=== PATIENT | male | born 1970 | race Caucasian/White ===

== ENCOUNTER 2018-08-18 20:17 | Inpatient (IN) | payer MEDICAID, OTHER ==
[~2018-08-18] VITALS: Ht 165.1 cm; Wt 79.0 kg
--- NOTE | 2018-08-18 22:39 | ERD ---
ER Documentation Chief Complaint Chief Complaint bib ra from [place] for cp, given 162 asa, 1 spray nitro, no cp upon assessm HPI 47-year-old male who presents with family member. The patient had a dental procedure with tooth extraction earlier today. While at dinner he started to describe pressure-like crushing chest pain radiating to the left upper extremity. The patient denies any ripping or tearing sensation, no pain to the middle of his back. He was given aspirin and nitroglycerin via EMS with complete resolution of symptoms. The family member also notes that the patient was having some weakness of the left upper extremity for approximately 5-10 minutes. He did describe a mild headache but no sudden onset headache or syncopal episode. Patient is asymptomatic currently. Family notes that he has been under an unbelievable amount of stress recently. ROS All systems reviewed and are negative except as per history of present illness. PMhx/Soc Medical and Surgical Hx: pt denies Medical Hx, pt denies Surgical Hx Hx Cardiac Disorders: Yes (htn, hyperlipidemia ) Hx Alcohol Use: No Hx Substance Use: No Hx Tobacco Use: No Smoking Status: Never smoker FmHx Family History: No diabetes Physical Exam Vitals Vital Signs Date Temp Pulse Resp B/P (MAP) Pulse Ox O2 O2 Flow FiO2 Time Delivery Rate 08/18/18 98.1 62 19 126/65 100 Room Air 20:21 (85) 08/18/18 Nasal 20:21 Cannula 08/18/18 98.1 62 19 126/65 100 20:18 (85) Physical Exam General: Well developed, well nourished, no acute distress Head: Normocephalic, atraumatic. Eyes: Pupils equally reactive, EOM intact ENT: Moist mucous membranes Neck: Supple, no lymphadenopathy Respiratory: Lungs clear bilaterally, no distress Cardiovascular: RRR, no murmurs, rubs, or gallops Abdominal: Soft, non-tender, non-distended, no peritoneal signs : Deferred MSK: No edema, no unilateral swelling, 5/5 strength Neurologic: Alert and oriented, moving all extremities, normal speech, no focal weakness, no cerebellar signs, normal rapid alternating movements, no pronator drift. NIH SS of 0 Skin: No rash Psych: Normal mood Result Diagram: 08/18/18202608/18/182026 Results 24 hrs Laboratory Tests Test 08/18/18 20:27 White Blood Count 9.4 10^3/ul Red Blood Count 3.93 10^6/ul Hemoglobin 12.3 g/dl Hematocrit 34.1 % Mean Corpuscular Volume 86.8 fl Mean Corpuscular Hemoglobin 31.3 pg Mean Corpuscular Hemoglobin Concent 36.1 g/dl Red Cell Distribution Width 11.4 % Platelet Count 341 10^3/UL Mean Platelet Volume 9.1 fl Immature Granulocytes % 0.600 % Neutrophils % 59.6 % Lymphocytes % 25.3 % Monocytes % 7.0 % Eosinophils % 6.8 % Basophils % 0.7 % Nucleated Red Blood Cells % 0.0 /100WBC Immature Granulocytes # 0.060 10^3/ul Neutrophils # 5.6 10^3/ul Lymphocytes # 2.4 10^3/ul Monocytes # 0.7 10^3/ul Eosinophils # 0.6 10^3/ul Basophils # 0.1 10^3/ul Nucleated Red Blood Cells # 0.0 10^3/ul Prothrombin Time 13.7 Sec Prothrombin Time Ratio 1.1 INR International Normalized Ratio 1.04 Activated Partial Thromboplast Time 26.6 Sec Sodium Level 127 mmol/L Potassium Level 3.6 mmol/L Chloride Level 92 mmol/L Carbon Dioxide Level 25 mmol/L Anion Gap 10 Blood Urea Nitrogen 13 mg/dl Creatinine 1.06 mg/dl Est Glomerular Filtrat Rate mL/min > 60 mL/min Glucose Level 147 mg/dl Hemoglobin A1c 5.2 % Calcium Level 9.2 mg/dl Troponin I < 0.012 ng/ml Triglycerides Level 132 mg/dl Cholesterol Level 168 mg/dl LDL Cholesterol, Calculated 99 mg/dl HDL Cholesterol 43 mg/dl Cholesterol/HDL Ratio 3.9 RATIO Procedures/MDM EKG, MONITORS, & DIAGNOSTIC IMAGING: EKG: I reviewed and interpreted a 12-lead EKG. Rhythm: Normal sinus rhythm ST Changes: No contiguous ST segment elevations T waves: No contiguous T wave inversions Impression: No evidence of acute cardiac ischemia Repeat EKG: EKG: I reviewed and interpreted a 12-lead EKG. Rhythm: Normal sinus rhythm ST Changes: No contiguous ST segment elevations T waves: No contiguous T wave inversions Impression: No evidence of acute cardiac ischemia Chest x-ray: I reviewed and interpreted a 1 view of the chest Mediastinum: No enlargement Cardiac silhouette: No cardiomegaly Airspace: Clear lung avila bilaterally without evidence of pneumothorax Bones: No evidence of fracture CT brain: IMPRESSION: 1. No acute intracranial hemorrhage nor mass effect. 2. Few scattered punctate cortical/subcortical calcifications noted in the right frontal and left occipital lobe, possibly reflecting sequela of prior ischemia, trauma or infection such as neurocysticercosis or toxoplasmosis. Clinical correlation recommended with consideration for further evaluation with MRI brain without and with gadolinium. 3. Otherwise, age - appropriate unenhanced CT appearance of the brain. MRI brain has improved sensitivity for acute infarct or subtle lesion. Findings discussed with and acknowledged by Dr. Barrera at 09:00 p.m. 08/18/2018. RPTAT: HSAN PROCEDURES: None LAB INTERPRETATION: Negative troponin MEDICAL DECISION MAKING: The patient's history, physical exam and clinical presentation is concerning for possible cardiogenic etiology and acute coronary syndrome. The presentation is quite odd. The patient additionally had some weakness of the left upper extremity. The patient did not have any ripping or tearing pain and no pain to the middle of his back to suggest dissection. While there is a neurologic finding that is now resolved I doubt this is consistent with dissection. The patient mediastinum is normal as well. She has no significant risk factors for dissection. I do not believe a CT of the chest is warranted at this time of her continue to monitor. Consider possible TIA versus anxiety response. Patient's ABCD 2 score is 3 placing him in a low risk category. Based on the patient's clinical exam and history and risk factors, I have a much lower clinical concern for pulmonary embolism, acute aortic dissection, pneumothorax, pneumonia, cardiac tamponade HEART Score: 0-3 MACE Rate: 1.7% Shared Decision Making: We had a conversation regarding risk stratification, MACE rate, and the risks, benefits, alternatives of disposition planning options. Disposition planning: Admission ER COURSE: * The patient symptoms are completely resolved. The patient is not a TPA or interventional candidate given complete resolution of symptoms, asymptomatic and NIH SS of 0 the risks greatly outweigh the benefits. * Patient received aspirin and nitro prior to arrival. Patient is asymptomatic and chest pain-free. CONSULTATION: None DISPOSITION PLAN: Telemetry admission for management of chest pain to rule out acute coronary syndrome, serial enzymes, risk stratification and consideration of provocative testing CONSULTATION: Accepting care team and consultations: I discussed the current laboratory data, diagnostic imaging and emergency care provided. Admitting team: Dr. Martinez Admitting team indication: Insurance directed Departure Diagnosis: Primary Impression: Chest pain Chest pain type: unspecified Qualified Codes: R07.9 - Chest pain, unspecified Additional Impressions: Left arm weakness Hyponatremia Anxiety Condition: Stable JI BARRERA MD Aug 18, 2018 22:39
[2018-08-18] MEDS ORDERED: ONDANSETRON 4 MG INJ IV PRN (23:00)
[2018-08-18] MEDS ORDERED: ACETAMINOPHEN 325 MG TAB PO PRN (23:00)
--- NOTE | 2018-08-18 23:32 | HP ---
Date/Time of Note Date/Time of Note DATE: 08/18/18 TIME: 23:32 Assessment/Plan VTE Prophylaxis Pharmacological prophylaxis: heparin Lines/Catheters IV Catheter Type (from [facility]rs[facility]): Saline Lock Assessment/Plan Assessment/Plan 1. Chest pain: Rule out ACS -first troponin negative and EKG without ST T wave abnormalities -Aspirin, ACEI, as needed nitro -Serial troponin and 2D echo -Consider cardiology consult 2. Hyponatremia: will hold hydrochlorothiazide 3. Hypertension: Continue home meds. Adjust as needed 4. History of asthma/allergy: No sign of shortness of breath. Monitor closely Result Diagram: 08/18/18202608/18/182026 Results 24hrs Laboratory Tests Test 08/18/18 20:27 White Blood Count 9.4 Red Blood Count 3.93 L Hemoglobin 12.3 L Hematocrit 34.1 L Mean Corpuscular Volume 86.8 Mean Corpuscular Hemoglobin 31.3 Mean Corpuscular Hemoglobin Concent 36.1 Red Cell Distribution Width 11.4 L Platelet Count 341 Mean Platelet Volume 9.1 Immature Granulocytes % 0.600 H Neutrophils % 59.6 Lymphocytes % 25.3 Monocytes % 7.0 Eosinophils % 6.8 Basophils % 0.7 Nucleated Red Blood Cells % 0.0 Immature Granulocytes # 0.060 H Neutrophils # 5.6 Lymphocytes # 2.4 Monocytes # 0.7 Eosinophils # 0.6 H Basophils # 0.1 Nucleated Red Blood Cells # 0.0 Prothrombin Time 13.7 Prothrombin Time Ratio 1.1 INR International Normalized Ratio 1.04 Activated Partial Thromboplast Time 26.6 Sodium Level 127 L Potassium Level 3.6 Chloride Level 92 L Carbon Dioxide Level 25 Anion Gap 10 Blood Urea Nitrogen 13 Creatinine 1.06 Est Glomerular Filtrat Rate mL/min > 60 Glucose Level 147 Hemoglobin A1c 5.2 Calcium Level 9.2 Troponin I < 0.012 Triglycerides Level 132 Cholesterol Level 168 LDL Cholesterol, Calculated 99 HDL Cholesterol 43 Cholesterol/HDL Ratio 3.9 HPI/ROS Admit Date/Time Admit Date/Time Hx of Present Illness This is a 47-year-old male with a history of hypertension and asthma/allergy who presents ER complaining of chest pain. Pain is been going on for 1 day. Located in the mid chest and also left-sided with radiation to the left arm. No associated shortness of breath, nausea/vomiting or diaphoresis. Currently he is chest pain-free and looks comfortable. Patient's son was at the bedside who helped with the history taking. When presented to ER, vitals were stable. First troponin negative and EKG without ST elevation or depression. PMH/Family/Social Past Medical History Medical History: other (See HPI) Medications Current Medications Ondansetron HCl (Zofran Inj) 4 mg ER BRIDGE PRN IV NAUSEA/VOMITING; Start 08/18/18 at 23:00; Stop 08/19/18 at 22:59 Acetaminophen (Tylenol Tab) 650 mg ER BRIDGE PRN PO .MILD PAIN 1-3 OR TEMP; Start 08/18/18 at 23:00; Stop 08/19/18 at 22:59 Coded Allergies: Penicillins (Unverified Allergy, Unknown, ITCHY THROAT, 08/19/18) Past Surgical History Past Surgical Hx: other (See HPI) Family History Significant Family History: no pertinent family hx Social History Alcohol Use: none Smoking Status: Never smoker Drug Use: none Exam/Review of Systems Vital Signs Vitals Vital Signs Date Temp Pulse Resp B/P (MAP) Pulse Ox O2 O2 Flow FiO2 Time Delivery Rate 08/18/18 98.1 62 19 126/65 100 Room Air 20:21 (85) Exam Constitutional: alert, oriented, well developed Head: normocephalic, atraumatic Eyes: EOMI, PERRL Respiratory: clear to auscultation, normal air movement Cardiovascular: regular rate and rhythm, nl pulses Gastrointestinal: soft, non-tender Extremities: normal pulses CIPRIANO LAWTON MD Aug 18, 2018 23:32
[2018-08-19] VITALS (13 sets, daily range): BP systolic 108–132; BP diastolic 58–80; PULSE 57–75; RESP 17–22; Ht 165.1 cm; Wt 79.0 kg
[2018-08-19] MEDS ORDERED: LORA10TA3 PO (02:51)
[2018-08-19] MEDS ORDERED: LISI1TAB6 PO (02:51)
[2018-08-19] MEDS ORDERED: ALBU18HF INHALATION (02:51)
[2018-08-19] MEDS ORDERED: IBUP200C11 PO (02:51)
[2018-08-19] MEDS ORDERED: ALBUTEROL/IPRATROPIUM (NEB) 3 ML AMP HHN PRN (04:30)
[2018-08-19] MEDS ORDERED: ONDANSETRON 4 MG INJ IV PRN (04:30)
[2018-08-19] MEDS ORDERED: NACL 0.9% 3 ML SYG IV SCH (04:30)
[2018-08-19] MEDS ORDERED: NITROGLYCERIN (SL) 0.4 MG TAB SL PRN (04:30)
[2018-08-19] MEDS ORDERED: ACETAMINOPHEN 325 MG TAB PO PRN (04:30)
[2018-08-19] MEDS ORDERED: SOD CHLORIDE 0.9% 1,000 ML IV SCH (07:00)
[2018-08-19] MEDS: ASPIRIN 81 MG TAB PO SCH (08:57)
[2018-08-19] MEDS: LORATADINE 10 MG TAB PO SCH (08:57)
[2018-08-19] MEDS: LISINOPRIL 20 MG TAB PO SCH (08:57)
[2018-08-19] MEDS: HEPARIN 5,000 UNIT/1 ML VIAL SC SCH ×2 (09:53→21:00)
--- NOTE | 2018-08-19 13:55 | PN ---
Date/Time of Note Date/Time of Note DATE: 08/19/18 TIME: 13:37 Assessment/Plan VTE Prophylaxis Risk score (from [facility])>0 risk: 1 SCD applied (from [facility]): Yes Pharmacological prophylaxis: heparin Lines/Catheters IV [facility]from [facility] Saline Lock Urinary Cath still in place: No Assessment/Plan Assessment/Plan 1. Chest pain, negative troponin, cardiology consult 2. Hyponatremia: will hold hydrochlorothiazide, IVF with NS, follow up with Na 3. Hypertension, controlled 4. History of asthma/allergy: No sign of shortness of breath 5. Few scattered punctate cortical/subcortical calcifications noted in the right frontal and left occipital lobe on CT scan, MRI for further evaluation 6. DVT prophylaxis: heparin Result Diagram: 08/19/1858 08/19/18557 Results 24hrs Laboratory Tests Test 08/18/18 20:27 08/19/18 03:29 08/19/18 05:58 08/19/18 09:45 White Blood Count 9.4 7.5 # Red Blood Count 3.93 L 3.98 L Hemoglobin 12.3 L 12.5 L Hematocrit 34.1 L 34.4 L Mean Corpuscular 86.8 86.4 Volume Mean Corpuscular 31.3 31.4 Hemoglobin Mean Corpuscular 36.1 36.3 Hemoglobin Concent Red Cell 11.4 L 11.3 L Distribution Width Platelet Count 341 337 Mean Platelet Volume 9.1 9.3 Immature 0.600 H 0.500 H Granulocytes % Neutrophils % 59.6 48.9 Lymphocytes % 25.3 32.1 Monocytes % 7.0 9.1 Eosinophils % 6.8 8.7 H Basophils % 0.7 0.7 Nucleated Red Blood 0.0 0.0 Cells % Immature 0.060 H 0.040 H Granulocytes # Neutrophils # 5.6 3.7 Lymphocytes # 2.4 2.4 Monocytes # 0.7 0.7 Eosinophils # 0.6 H 0.7 H Basophils # 0.1 0.1 Nucleated Red Blood 0.0 0.0 Cells # Prothrombin Time 13.7 Prothrombin Time 1.1 Ratio INR International 1.04 Normalized Ratio Activated 26.6 Partial Thromboplast Time Sodium Level 127 L 129 L Potassium Level 3.6 3.8 Chloride Level 92 L 95 L Carbon Dioxide Level 25 25 Anion Gap 10 9 Blood Urea Nitrogen 13 11 Creatinine 1.06 0.96 Est Glomerular > 60 > 60 Filtrat Rate mL/min Glucose Level 147 96 # Hemoglobin A1c 5.2 5.2 Calcium Level 9.2 9.3 Troponin I < 0.012 < 0.012 < 0.012 < 0.012 Triglycerides Level 132 160 H Cholesterol Level 168 182 LDL Cholesterol, 99 113 Calculated HDL Cholesterol 43 37 Cholesterol/HDL 3.9 4.9 Ratio Creatine Kinase 84 85 Creatine Kinase 0.3 0.3 Index Creatinine Kinase MB < 0.22 < 0.22 (Mass) Total Bilirubin 0.6 Direct Bilirubin 0.00 Indirect Bilirubin 0.6 Aspartate Amino 31 Transf (AST/SGOT) Alanine 34 Aminotransferase (AL T/SGPT) Alkaline Phosphatase 74 Total Protein 7.5 Albumin 4.2 Globulin 3.30 H Albumin/Globulin 1.27 Ratio Thyroid Stimulating 2.030 Hormone (TSH) Test 08/19/18 10:50 Urine Random Sodium 18 L Urine Random 11.6 L Potassium Urine Opiates Screen Negative Urine Barbiturates Negative Urine Amphetamines Negative Screen Urine Negative Benzodiazepines Screen Urine Cocaine Screen Negative Urine Cannabinoids Negative Subjective 24 Hr Interval Summary Free Text/Dictation no chest pain or shortness of breath Exam/Review of Systems Exam Vitals Vital Signs Date Temp Pulse Resp B/P (MAP) Pulse Ox O2 O2 Flow FiO2 Time Delivery Rate 08/19/18 73 12:12 08/19/18 98.0 22 124/69 96 Room Air 11:42 (87) Intake and Output 08/18/18 08/18/18 08/19/18 1515:00 23:00 07:00 OutputOutput Total 600 ml BalanceBalance -600 ml Constitutional: alert, oriented, well developed Psych: no complaints, nl mood/affect Head: normocephalic, atraumatic Eyes: nl conjunctiva, EOMI, nl lids ENMT: nl external ears & nose, nl lips & teeth, nl nasal mucosa & septum Neck: supple, non-tender Respiratory: clear to auscultation, normal air movement; No congested cough, No crackles/rales, No diminished breath sounds, No intercostal retraction, No labored breathing, No respirations, No tactile fremitus, No wheezing, No other Cardiovascular: regular rate and rhythm, nl pulses; No bruits, No diastolic murmur, No edema, No gallop, No irregular rhythm, No jugular venous distention (JVD), No murmurs/extra sounds, No rub, No systolic murmur, No S3, No S4, No other Gastrointestinal: soft, nl liver, spleen, non-tender; No ascites, No bowel sounds, No distended, No firm, No hepatomegaly, No mass, No rebound or guarding, No splenomegaly, No surgical scars, No tender, No other Musculoskeletal: nl extremities to inspection Extremities: normal pulses; No calf tenderness, No cyanosis, No clubbing, No edema, No pitting pedal edema, No palpable cord, No tenderness, No other Neurological: WAGON DRILLER II-XII intact, nl mental status, nl speech, nl strength Results Results 24hrs Laboratory Tests Test 08/18/18 20:27 08/19/18 03:29 08/19/18 05:58 08/19/18 09:45 White Blood Count 9.4 7.5 # Red Blood Count 3.93 L 3.98 L Hemoglobin 12.3 L 12.5 L Hematocrit 34.1 L 34.4 L Mean Corpuscular 86.8 86.4 Volume Mean Corpuscular 31.3 31.4 Hemoglobin Mean Corpuscular 36.1 36.3 Hemoglobin Concent Red Cell 11.4 L 11.3 L Distribution Width Platelet Count 341 337 Mean Platelet Volume 9.1 9.3 Immature 0.600 H 0.500 H Granulocytes % Neutrophils % 59.6 48.9 Lymphocytes % 25.3 32.1 Monocytes % 7.0 9.1 Eosinophils % 6.8 8.7 H Basophils % 0.7 0.7 Nucleated Red Blood 0.0 0.0 Cells % Immature 0.060 H 0.040 H Granulocytes # Neutrophils # 5.6 3.7 Lymphocytes # 2.4 2.4 Monocytes # 0.7 0.7 Eosinophils # 0.6 H 0.7 H Basophils # 0.1 0.1 Nucleated Red Blood 0.0 0.0 Cells # Prothrombin Time 13.7 Prothrombin Time 1.1 Ratio INR International 1.04 Normalized Ratio Activated 26.6 Partial Thromboplast Time Sodium Level 127 L 129 L Potassium Level 3.6 3.8 Chloride Level 92 L 95 L Carbon Dioxide Level 25 25 Anion Gap 10 9 Blood Urea Nitrogen 13 11 Creatinine 1.06 0.96 Est Glomerular > 60 > 60 Filtrat Rate mL/min Glucose Level 147 96 # Hemoglobin A1c 5.2 5.2 Calcium Level 9.2 9.3 Troponin I < 0.012 < 0.012 < 0.012 < 0.012 Triglycerides Level 132 160 H Cholesterol Level 168 182 LDL Cholesterol, 99 113 Calculated HDL Cholesterol 43 37 Cholesterol/HDL 3.9 4.9 Ratio Creatine Kinase 84 85 Creatine Kinase 0.3 0.3 Index Creatinine Kinase MB < 0.22 < 0.22 (Mass) Total Bilirubin 0.6 Direct Bilirubin 0.00 Indirect Bilirubin 0.6 Aspartate Amino 31 Transf (AST/SGOT) Alanine 34 Aminotransferase (AL T/SGPT) Alkaline Phosphatase 74 Total Protein 7.5 Albumin 4.2 Globulin 3.30 H Albumin/Globulin 1.27 Ratio Thyroid Stimulating 2.030 Hormone (TSH) Test 08/19/18 10:50 Urine Random Sodium 18 L Urine Random 11.6 L Potassium Urine Opiates Screen Negative Urine Barbiturates Negative Urine Amphetamines Negative Screen Urine Negative Benzodiazepines Screen Urine Cocaine Screen Negative Urine Cannabinoids Negative Medications Medication Current Medications Ondansetron HCl (Zofran Inj) 4 mg ER BRIDGE PRN IV NAUSEA/VOMITING; Start 08/18/18 at 23:00; Stop 08/19/18 at 22:59 Acetaminophen (Tylenol Tab) 650 mg ER BRIDGE PRN PO .MILD PAIN 1-3 OR TEMP; S tart 08/18/18 at 23:00; Stop 08/19/18 at 22:59 IV Flush (NS 3 ml) 3 ml PER PROTOCOL IV ; Start 08/19/18 at 04:30 Ondansetron HCl (Zofran Inj) 4 mg Q6H PRN IV NAUSEA/VOMITING; Start 08/19/18 at 04:30 Aspirin (Aspirin) 81 mg DAILY PO Last administered on 08/19/18at 08:57; Admin Dose 81 MG; Start 08/19/18 at 09:00 Nitroglycerin (Nitroglycerin (Sl Tab) 0.4 Mg) 1 tab Q5M PRN SL .CHEST PAIN; Start 08/19/18 at 04:30 Acetaminophen (Tylenol Tab) 650 mg Q6H PRN PO .PAIN 1-3 OR TEMP; Start 08/19/18 at 04:30 Heparin Sodium (Porcine) (Heparin (5000 Units/1ml)) 5,000 unit Q12 SC Last administered on 4/12/19at 09:53; Admin Dose 5,000 UNIT; Start 08/19/18 at 09:00 Albuterol/ Ipratropium (Duoneb) 3 ml Q2H RESP THERAPY PRN HHN SHORTNESS OF BREATH; Start 08/19/18 at 04:30 Loratadine (Claritin) 10 mg DAILY PO Last administered on 08/19/18 08:57; Admin Dose 10 MG; Start 08/19/18 at 09:00 Sodium Chloride 1,000 ml @ 100 mls/hr Q10H IV Last administered on 08/19/18 08:57; Admin Dose 100 MLS/HR; Start 08/19/18 at 07:00 Lisinopril (Zestril) 20 mg DAILY PO Last administered on 08/19/18 08:57; Admin Dose 20 MG; Start 08/19/18 at 09:00 JADA CHAU MD Aug 19, 2018 13:53
[2018-08-19] MEDS: POTASSIUM CHLORIDE 10 MEQ in SOD CHLORIDE 0.9% 1,000 ML IV SCH (16:29)
--- NOTE | 2018-08-19 20:34 | RADRPT ---
Echocardiogram Report Patient Name: Apoorva COLEnt ID: [id number] : 1970 (47y 8m)Study Date: 08/19/2018 8:37:03 AM Gender: MAccession #: [id number] Tech: Shaun Bar [facility] Location: [address] Ref.Physician: CIPRIANO LAWTON Height(Cm): BSA: Weight(Kg): Quality: AdequateAccount #: Procedures: Echocardiographic Report: Transthoracic echocardiogram with complete 2D, M-Mode, and doppler examination. Indications: Chest Pain. Measurements: 2D/M Mode Doppler Measurement Value Normal Range Measurement Value Normal Range LVIDd 2D 4.2 [ 4.2 - 5.8 ] cm AV Peak Isauro 1.3 [ 100.0 - 170.0 ] cm/sec LVIDs 2D 2.6 [ 2.5 - 4.0 ] cm AV Peak PG 7.0 [ 2.0 - 9.0 ] mmHg LVPWd 2D 0.9 [ 0.6 - 1.0 ] cm LVOT Peak Isauro 0.9 [ 70.0 - 110.0 ] cm/sec IVSd 2D 0.9 [ 0.6 - 1.0 ] cm LVOT Peak PG 4.0 [ 2.0 - 6.0 ] mmHg IVS/LVPW 2D 1.0 ratio MV E Peak Isauro 0.7 [ 60.0 - 130.0 ] cm/sec AoR Diam 2D 2.0 [ 2.6 - 3.4 ] cm MV A Peak Isauro 0.4 [ 100.0 - 120.0 ] cm/sec LA/Ao 2D 2 ratio MV E/A 1.6 [ 0.8 - 1.5 ] ratio LA Dimen 2D 3.2 [ 3.0 - 4.0 ] cm MV Decel Time 169 [ 104 - 258 ] msec Lat E` Isauro 0.2 [ 10.0 - 15.0 ] cm/sec MV E/A 1.6 [ 0.8 - 1.5 ] ratio TR Peak Isauro 2.1 [ 100.0 - 280.0 ] cm/sec TR Peak PG 18.0 mmHg RVSP 21.0 [ 10.0 - 36.0 ] mmHg Findings: Left Ventricle: Normal left ventricular systolic function. Normal left ventricular cavity size. Normal left ventricular wall thickness. Ejection fraction is visually estimated at 60 %. Tissue Doppler/Mitral Doppler indices are consistent with pseudonormalization with mildly elevated left atrial pressure (Stage II diastolic dysfunction). Right Ventricle: Normal right ventricular size. Normal right ventricular systolic function. Left Atrium: The left atrium is normal in size. Right Atrium: The right atrium is normal in size. Mitral Valve: Mild mitral leaflet calcification. Mild mitral annular calcification. Trace mitral regurgitation. Aortic Valve: No hemodynamically significant aortic stenosis by doppler. Aortic cusps appear mildly calcified. Tricuspid Valve: Normal appearance of the tricuspid valve. Estimated peak PA systolic pressure 21 mmHg. There is trace tricuspid regurgitation. Pericardium: Normal pericardium with no significant pericardial effusion. Aorta: Normal aortic root. IVC: Normal size and normal respiratory collapse consistent with normal right atrial pressure. Conclusions: Normal left ventricular systolic function. Normal left ventricular cavity size. Normal left ventricular wall thickness. Ejection fraction is visually estimated at 60 %. Tissue Doppler/Mitral Doppler indices are consistent with pseudonormalization with mildly elevated left atrial pressure (Stage II diastolic dysfunction). Mild mitral leaflet calcification. Mild mitral annular calcification. Trace mitral regurgitation. Normal appearance of the tricuspid valve. Estimated peak PA systolic pressure 21 mmHg. There is trace tricuspid regurgitation. Electronically Signed By: Oscar Ruggiero 2018-08-19 20:34:40 PDT
[2018-08-19] MEDS: METOPROLOL 25 MG TAB PO SCH (20:45)
[2018-08-20] VITALS (9 sets, daily range): BP systolic 101–119; BP diastolic 53–68; PULSE 56–67; RESP 16–20
--- NOTE | 2018-08-20 00:30 | CONS ---
DATE OF ADMISSION: 08/18/2018 DATE OF CONSULTATION: 08/19/2018 REASON FOR CONSULTATION: Chest pain, assess for acute coronary syndrome. REQUESTING PHYSICIAN: Dr. Aleja Chau from the hospitalist service. HISTORY OF PRESENT ILLNESS: Mr. Ding is a 47-year-old male with a history of high blood press ure, asthma, who presented with complaints of left-sided substernal chest pain per patient, ongoing f or approximately a year. He said the pressure became high and became stronger, and additionally, he had numbness and weakness in his left hand. Given these findings, the patient presented to the emerg ency department where upon arrival, temperature 98.1, blood pressure 123/65, pulse 60, respiratory ra te 19, satting 100%. The patient's labs revealed white cell count 9.4, hemoglobin 12.3, platelet cou nt of 341; sodium of 127, potassium 3.6, creatinine 1.0, BUN 13; troponin negative; LDL 99, HDL 43; I NR of 1. Tox screen negative. UA: Urine random sodium 18, urine random potassium 11.6. The patien t underwent a chest x-ray revealing mild bibasilar atelectatic change and a brain CT that revealed no acute intracranial hemorrhage or mass effect, a few scattered punctate cortical-subcortical calcific ations noted in the right frontal left upper lobe possibly reflecting sequelae of prior ischemia, tra lilliam or infection such as neurocysticercosis or toxoplasmosis. The patient's electrocardiogram reveal ed normal sinus rhythm at a rate of 62, normal axis, normal intervals, isolated T-wave flattening in inferior leads. The patient was subsequently admitted to the floor, and since admit to the floor, he has had some improvement in left-sided substernal chest pain. PAST MEDICAL HISTORY: As above in the HPI. MEDICATIONS CURRENTLY IN THE HOSPITAL: 1. Aspirin 81 mg a day. 2. Heparin 5000 subQ q.12. 3. Claritin 10 mg daily. 4. Zestril 10 mg daily. 5. p.r.n. 6. Tylenol p.r.n. 7. DuoNeb p.r.n. ALLERGIES: PENICILLIN. SOCIAL HISTORY: No current tobacco, EtOH or illicit drug use. FAMILY HISTORY: No history of sudden cardiac or early CAD. REVIEW OF SYSTEMS: As above in the HPI. CONSTITUTIONAL: No fevers or chills. PULMONARY: No current shortness of breath. CARDIOVASCULAR: Intermittent chest pain. GASTROINTESTINAL: No vomiting. GENITOURINARY: No hematuria. MUSCULOSKELETAL: Degenerative joint disease. PSYCHIATRIC: No documented psych history. NEUROLOGIC: No documented history of CVA. ENDOCRINE: No documented history of diabetes mellitus. PHYSICAL EXAMINATION: VITAL SIGNS: Temperature 98, blood pressure 130/80, pulse 95, respiratory rate 20, saturating 96%. GENERAL: The patient is alert, awake, in no acute distress. NECK: JVP approximately 8 to 9 cm of water. CHEST: Fair air movement throughout. HEART: Regular rate and rhythm. Normal S1, S2. A I/ systolic murmur. Nondisplaced PMI. ABDOMEN: Positive bowel sounds. Soft. EXTREMITIES: No significant pitting edema, 1+ pulses bilateral posterior tibial. LABORATORY DATA: Labs most recently from today: White blood cell count 7.5, hemoglobin 12.5, platel et count 337. Sodium of 129, potassium 3.8, BUN 11, creatinine 0.96. Troponin negative x3. LDL 113 , HDL 37. TSH of 2.0. IMAGING STUDIES: As above in the HPI. No further imaging studies for my review at this time. ELECTROCARDIOGRAM: As above in the HPI. No further electrocardiograms for my review at this time. IMPRESSION: 1. Chest pain. Assess for acute coronary syndrome with the patient's symptoms being somewhat atypic al and having some reproducibility of the chest pain on palpation of his chest. 2. Hypertension, under reasonable control. 3. Weakness and numbness in his left hand, rule out transient ischemic attack, cerebrovascular accid ent. 4. Hyponatremia. 5. Anemia, mild. RECOMMENDATIONS: 1. At this time, we would maintain patient on telemetry monitoring to follow rhythm and rate control closely. 2. Complete the patient's rule out for myocardial infarction to assure that the patient's constellat ion of symptoms are not a result of an acute coronary syndrome such as acute myocardial infarction. 3. Continue the patient's aspirin for prophylaxis against cardiovascular events. 4. Continue the patient's current lisinopril. Add low-dose beta jovani to improve heart rate and b lood pressure control and we will give the patient sublingual nitroglycerin for recurrent episodes of chest pain. 5. We will check a 2D echo for this patient's ejection fraction and wall motion to rule out any юлия r abnormalities. 6. Check a fasting lipid panel for general risk stratification and initiate lipid-lowering medicatio n as necessary. 7. Ongoing evaluation of the patient's hyponatremia, hand numbness, and punctate lesions seen on hea d CT, being evaluated per PMD and alternative consultations. Thank you for allowing me to take part in the care of this patient. I will continue to follow along very closely with you, with further recommendations to be made as the patient progresses through [facility] clinical course. Dictated By: ANA BELCHER/NTS Conf#: [id number] DID#: [id number] CC: ALEJA CHAU MD; CIPRIANO LAWTON MD;*End*
[2018-08-20] MEDS: POTASSIUM CHLORIDE 10 MEQ in SOD CHLORIDE 0.9% 1,000 ML IV SCH (06:55)
[2018-08-20] MEDS: METOPROLOL 25 MG TAB PO SCH (08:12)
[2018-08-20] MEDS: LISINOPRIL 20 MG TAB PO SCH (08:12)
[2018-08-20] MEDS: ASPIRIN 81 MG TAB PO SCH (08:12)
[2018-08-20] MEDS: LORATADINE 10 MG TAB PO SCH (08:12)
[2018-08-20] MEDS: HEPARIN 5,000 UNIT/1 ML VIAL SC SCH (08:17)
--- NOTE | 2018-08-20 08:51 | RADRPT ---
MASON COLE :1970 Sex:M Status: RECONFIRMED ACC:[id number] Exam DATE:2018-08-20 07:53:55 Vent Rate: 62 bpm RR Interval: 0 msec AL Interval: 164 msec QRS Duration: 94 msec QT Interval: 380 msec QTC Interval: 385 msec P-R-T [place]: 65 - 79 - 64 degrees Normal sinus rhythm Normal ECG Electronically Signed By: Oscar Ruggiero
--- NOTE | 2018-08-20 14:37 | DS ---
Date/Time of Note Date/Time of Note DATE: 08/20/18 TIME: 14:32 Discharge Summary Admission/Discharge Info Admit Date/Time Aug 18, 2018 at 22:35 Discharge Date/Time Patient Condition: Stable Consults Ruggiero Procedures Chest x-ray: No acute process 2D Echo Conclusions: Normal left ventricular systolic function. Normal left ventricular cavity size. Normal left ventricular wall thickness. Ejection fraction is visually estimated at 60 %. Tissue Doppler/Mitral Doppler indices are consistent with pseudonormalization with mildly elevated left atrial pressure (Stage II diastolic dysfunction). Mild mitral leaflet calcification. Mild mitral annular calcification. Trace mitral regurgitation. Normal appearance of the tricuspid valve. Estimated peak PA systolic pressure 21 mmHg. There is trace tricuspid regurgitation. CT scan brain IMPRESSION: 1. No acute intracranial hemorrhage nor mass effect. 2. Few scattered punctate cortical/subcortical calcifications noted in the right frontal and left occipital lobe, possibly reflecting sequela of prior ischemia, trauma or infection such as neurocysticercosis or toxoplasmosis. Clinical correlation recommended with consideration for further evaluation with MRI brain without and with gadolinium. 3. Otherwise, age - appropriate unenhanced CT appearance of the brain. MRI brain has improved sensitivity for acute infarct or subtle lesion. MRI Brain with and without gadolinium CLINICAL INDICATION: Cortical/subcortical calcifications which may reflect infection noted on CT head performed for transient right upper extremity weakness in patient with hyponatremia and chest pain. TECHNIQUE: An MRI of the brain was performed on a Signa 3 Shannan scanner utilizing the following sequences: Sagittal and axial T1 weighted, axial T2 weighted, axial T2 FLAIR, coronal GRE, and axial diffusion weighted with ADC mapping. Additionally, postcontrast axial, sagittal and coronal T1-weighted sequences with fat saturation were performed after 10 cc of ProHance were given intravenously without complication. COMPARISON: Unenhanced CT head 08/18/2018. FINDINGS: No intracranial hemorrhage, extra-axial fluid collection, mass effect nor midline shift. No focal pathologic enhancement. Punctate calcifications noted in the lateral right frontal lobe and superior left occipital lobe on recent CT are beyond the resolution of standard MRI gradient echo imaging. No acute infarct. Mild smudgy T2 prolongation in the central pontine belly and periaqueductal gan matter may reflect chronic sequela of central pontine myelinolysis, without diffusion restriction to suggest active demyelination. Ventricles and sulci are age appropriate. Basal cisterns are patent and symmetric. Central intracranial flow voids appear grossly intact. Dural venous sinuses appear to enhance normally. Visualized paranasal sinuses and mastoid air cells are essentially clear. Slight s-shaped nasal septal deviation. Intraorbital soft tissues appear grossly normal. Calvarial marrow signal appears normal. IMPRESSION: 1. Mild smudgy T2 prolongation in the central pontine belly and periaqueductal gan matter may reflect chronic sequela of central pontine myelinolysis, without diffusion restriction to suggest active demyelination. 2. Punctate calcifications noted in the right frontal and left occipital lobes on recent CT are beyond the resolution of standard MRI gradient echo imaging, but there is no pathologic enhancement or cerebral signal abnormality to suggest infection. Hx of Present Illness 47-year-old gentleman admitted with chest arm pain of unknown duration. Concern of ACS. Hospital Course Hospitalist coverage/hospital course Admitted rule out for ACS by enzymes EKG symptoms. Seen by cardiology. Recommendations are medical management/risk factor modification. Atypical does not need stress test. Stable and fit for discharge. Due to the left arm pain there was concern about a TIA as well. CAT scan MRI brain without any acute process. No family history of stroke or upper co agulable disorder. Recommend risk factor modification. The differential included accelerated hypertension of which the blood pressure seems stable. No injury. Chest x-ray normal/no acute intra-thoracic process. Chronic hypertension Chronic asthma? Anemia, unknown etiology, defer management with primary. Home Meds Reported Medications Loratadine* (Loratadine*) 10 Mg Tablet, 10 MG PO DAILY, #30 TAB 08/19/18 Albuterol Sulfate* (Ventolin HFA*) 18 Gm Hfa.aer.ad, 2 PUFF INHALATION Q4H, #1 INHALER 08/19/18 Ibuprofen* (Advil*) 200 Mg Capsule, 200 MG PO Q6H PRN for PAIN, CAP 08/19/18 Lisinopril/Hydrochlorothiazide (Lisinopril-Hctz 20-12.5 mg Tab) 1 Each Tablet, 1 EACH PO DAILY, TAB 08/19/18 Primary Care Provider Care Physician No Primary Time spent on discharge: > 30 minutes Pending Labs Laboratory Tests Test 08/20/18 05:11 White Blood Count 6.8 10^3/ul (4.8-10.8) Red Blood Count 3.83 10^6/ul (4.70-6.10) Hemoglobin 11.9 g/dl (14.0-18.0) Hematocrit 33.3 % (42.0-52.0) Mean Corpuscular Volume 86.9 fl (82.0-101.0) Mean Corpuscular Hemoglobin 31.1 pg (29.0-33.0) Mean Corpuscular Hemoglobin Concent 35.7 g/dl (32.0-37.0) Red Cell Distribution Width 11.8 % (11.5-14.5) Platelet Count 325 10^3/UL (140-415) Mean Platelet Volume 9.7 fl (7.4-10.4) Immature Granulocytes % 0.400 % (0.001-0.429) Neutrophils % 35.4 % (39.0-77.0) Lymphocytes % 42.1 % (15.0-51.0) Monocytes % 11.6 % (0.0-11.0) Eosinophils % 9.8 % (0.0-7.0) Basophils % 0.7 % (0.0-2.0) Nucleated Red Blood Cells % 0.0 /100WBC (0.0-0.0) Immature Granulocytes # 0.030 10^3/ul (0.0-0.031) Neutrophils # 2.4 10^3/ul (1.6-7.5) Lymphocytes # 2.8 10^3/ul (0.8-2.9) Monocytes # 0.8 10^3/ul (0.3-0.9) Eosinophils # 0.7 10^3/ul (0.0-0.5) Basophils # 0.1 10^3/ul (0.0-0.1) Nucleated Red Blood Cells # 0.0 10^3/ul (0.0-0.0) Sodium Level 134 mmol/L (135-144) Potassium Level 4.1 mmol/L (3.5-5.1) Chloride Level 102 mmol/L (97-110) Carbon Dioxide Level 26 mmol/L (21-31) Anion Gap 6 (5-13) Blood Urea Nitrogen 13 mg/dl (7-20) Creatinine 1.09 mg/dl (0.61-1.24) Est Glomerular Filtrat Rate mL/min > 60 mL/min (>60) Glucose Level 95 mg/dl (70-220) Calcium Level 9.0 mg/dl (8.4-10.2) Phosphorus Level 3.5 mg/dl (2.5-4.9) Magnesium Level 2.2 mg/dl (1.7-2.5) Triglycerides Level 156 mg/dl (0-149) Cholesterol Level 161 mg/dl (100-200) LDL Cholesterol, Calculated 88 mg/dl HDL Cholesterol 42 mg/dl (27-67) Cholesterol/HDL Ratio 3.8 RATIO MANJU ZALDIVAR MD Aug 20, 2018 14:37
--- NOTE | 2018-08-20 14:39 | PDOCDIS ---
Discharge Instructions CONDITION [id number] Patient Condition: [id number] Stable HOME CARE INSTRUCTIONS: [id number] Diet Instructions: [id number] y Rest between Activity Avoid heavy lifting FOLLOW UP/APPOINTMENTS Follow-up Plan primary 1wk MANJU ZALDIVAR MD Aug 20, 2018 14:39
[2018-08-20] MEDS ORDERED: ACET325T33 PO (14:40)
== END 2018-08-20 16:26 | disposition home or self-care (01) | DRG 313 ==
LOC: E/R 20:17 → 6WM 22:35
PROVIDERS: ADMIT Internal Medicine; ATTEND Internal Medicine
DX: R07.89 Other chest pain (principal); E87.1 Hypo-osmolality and hyponatremia; I10 Essential (primary) hypertension; E78.5 Hyperlipidemia, unspecified; J45.909 Unspecified asthma, uncomplicated; D64.9 Anemia, unspecified; F41.9 Anxiety disorder, unspecified
CPT/HCPCS: 36415; 70450; 70552; 71045; 80048; 80053; 80061; 80307; 82436; 82550; 82553; 83036; 83735; 84100; 84133; 84300; 84443; 84484; 85025; 85610; 85730; 92610; 93005; 93306; J1644; J3480; J7030